=== PATIENT | female | born 1995 | race Caucasian/White ===

== ENCOUNTER 2021-10-04 21:02 | Emergency (ER) | payer SELFPAY ==
[~2021-10-04] VITALS: Ht 162.6 cm; Wt 68.0 kg
[2021-10-04] MEDS ORDERED: ACETAMINOPHEN 325 MG TAB PO ONE (22:15)
[2021-10-04] MEDS ORDERED: ONDANSETRON ODT 4 MG TAB PO ONE (22:30)
[2021-10-04 23:20] LABS: Basophils # (auto) 0 10 ^3/uL (0-0.2); Basophils % (auto) 0.1 % (0.0-2.0); Eosinophils # (auto) 0 10 ^3/uL (0-0.8); Hematocrit 35.8 % (36.0-46.0); Hemoglobin 11.6 g/dL (12.2-16.2); Lymphocytes # (auto) 0.9 10 ^3/uL (0.4-5.4); Lymphocytes % (auto) 5.5 % (10.0-50.0); Mean Corpuscular Hemoglobin 29.5 pg (28.0-32.0); Mean Corpuscular Hgb Conc. 32.3 g/dL (32.0-36.0); Mean Corpuscular Volume 91.5 fL (80.0-100.0); Monocytes # (auto) 1.3 10 ^3/uL (0-1.3); Monocytes % (auto) 8.4 % (0.0-12.0); Neutrophils # (auto) 13.8 10 ^3/uL (1.6-8.6); Red Blood Cells 3.91 10^6/uL (4.0-5.20)
[2021-10-04] MEDS ORDERED: IOHEXOL 300 MG/ML 100ML BOTTLE IJ ONE (23:20)
[2021-10-04] MEDS ORDERED: HYDROcodone-ACET 5/325MG TAB PO ONE (23:30)
[2021-10-04 23:38] LABS: Calcium 8.9 mg/dL (8.5-10.1); Potassium 3.4 mmol/L (3.5-5.1)
[2021-10-05] MEDS ORDERED: fentaNYL CITRATE 100 MCG/2 ML VL IV ONE (00:45)
[2021-10-05 00:49] VITALS: BP 132/73
== END 2021-10-05 01:13 | disposition short-term general hospital (02) ==
LOC: ER 21:02
DX: S52.501A Unspecified fracture of the lower end of right radius, initial encounter for closed fracture (principal); S20.219A Contusion of unspecified front wall of thorax, initial encounter; S36.113A Laceration of liver, unspecified degree, initial encounter; Z88.2 Allergy status to sulfonamides; V80.010A Animal-rider injured by fall from or being thrown from horse in noncollision accident, initial encounter; Y93.89 Activity, other specified; Y92.89 Other specified places as the place of occurrence of the external cause; Y99.8 Other external cause status
CPT/HCPCS: 29125; 36415; 71260; 73100; 73502; 74177; 80048; 81025; 85025; 96374; 99285; J3010; Q0162; Q9967